=== PATIENT | male | born 1985 | race Caucasian/White ===

== ENCOUNTER 2020-08-17 22:02 | Emergency (ER) | payer MEDICAID ==
[2020-08-17 22:34] VITALS: BP 142/91; PULSE 73; RESP 18; TEMP 97.9
[2020-08-17] MEDS ORDERED: BACITRACIN OINT 1 EACH PACKET TOPICAL ONE (23:06)
[2020-08-17] MEDS ORDERED: CEPHALEXIN 500MG STARTER PACK 4 CAP BTL PO STA (23:23)
--- NOTE | 2020-08-17 23:30 | ED ---
Skin/Abscess/FB HPI - General Chief complaint: Skin/Abscess/Foreign Body Stated complaint: Hand lac Time Seen by Provider: 08/17/20 22:45 Source: patient Mode of arrival: ambulatory Limitations: no limitations - History of Present Illness Initial comments: 35 year-old male patient presents to the emergency department for evaluation of puncture wound to the left hand. Patient was using a drill on his chicken coop when he slipped and the drill bit entered the palm of his left hand. Injury occurred around 9pm. Reports oozing of blood and some discomfort. Reports some tingling to the volar forearm. Denies difficulty with movement of the hand or wrist. States his tetanus is up to date within the last 5 years. Denies any other injuries or concerns. - Related Data Previous Rx's Medication Instructions Recorded Cephalexin [Keflex] 500 mg PO BID #10 cap 08/17/20 Allergies Allergy/AdvReac Type Severity Reaction Status Date / Time No Known Allergies Allergy Verified 08/17/20 22:34 Review of Systems ROS Statement: Those systems with pertinent positive or pertinent negative responses have been documented in the HPI. ROS Other: All systems not noted in ROS Statement are negative. Past Medical History Past Medical History: No Reported History History of Any Multi-Drug Resistant Organisms: None Reported Additional Past Surgical History / Comment(s): left knee orthoscopy Past Psychological History: No Psychological Hx Reported Smoking Status: Never smoker Past Alcohol Use History: Occasional Past Drug Use History: None Reported General Exam Limitations: no limitations General appearance: alert, in no apparent distress Eye exam: Present: normal appearance, PERRL, EOMI. Absent: scleral icterus, conjunctival injection, periorbital swelling ENT exam: Present: normal exam, normal oropharynx, mucous membranes moist Respiratory exam: Present: normal lung sounds bilaterally. Absent: respiratory distress, wheezes, rales, rhonchi, stridor Cardiovascular Exam: Present: regular rate, normal rhythm, normal heart sounds. Absent: systolic murmur, diastolic murmur, rubs, gallop, clicks Extremities exam: Present: full ROM, normal capillary refill, other (puncture wound noted to the center of the left hand. Mild oozing of bright red blood. Radial, ulnar, and medial nerve is intact. Skin is otherwise pink, warm, and dry. Radial pulse 2+. ). Absent: normal inspection, tenderness, pedal edema, joint swelling, calf tenderness Neurological exam: Present: alert, oriented X3, CN II-XII intact Psychiatric exam: Present: normal affect, normal mood Skin exam: Present: warm, dry, intact, normal color. Absent: rash Course Vital Signs 08/17/20 22:31 Temperature 97.9 F Pulse Rate 73 Respiratory 18 Rate Blood Pressure 142/91 O2 Sat by Pulse 99 Oximetry Medical Decision Making - Medical Decision Making 35-year-old male patient presented to the emergency department today for evaluation of puncture wound to the left hand. Sustained injury with the drill around 9 PM. Physical examination did reveal to the center of the palm mild oozing of blood. X-ray was obtained and showed no evidence or fracture. Started on Keflex for prevention of infection. Educated regarding signs or symptoms of infection and wound care. Instructed to follow-up with the primary care physician or computer support specialist instructor if he has any further problems. Return parameters were discussed in detail. He verbalizes understanding and agrees w ith this plan. My attending is Dr. Lim. - Radiology Data Radiology results: report reviewed, image reviewed 3 views of the left hand are obtained. Report is reviewed in its entirety. Impression by Dr. Duncan shows negative exam. No fracture. Disposition Clinical Impression: Puncture wound of left hand Disposition: HOME SELF-CARE Condition: Good Instructions (If sedation given, give patient instructions): Puncture Wound (ED) Additional Instructions: Keep wound clean and dry. Cleanse twice daily with warm water and antibacterial soap. Take antibiotics one tablet twice daily until they are gone. Follow-up with the primary care physician for recheck in 1-2 days. Return to the emergency department for any new, worsening, or concerning symptoms. Prescriptions: Cephalexin [Keflex] 500 mg PO BID #10 cap Is patient prescribed a controlled substance at d/c from ED?: No Referrals: Alvaro Scott MD [STAFF PHYSICIAN] - 1-2 days Time of Disposition: 23:39
--- NOTE | 2020-08-17 23:35 | XR ---
EXAMINATION TYPE: XR hand complete LT DATE OF EXAM: 08/17/2020 COMPARISON: NONE HISTORY: Injury. Pain. TECHNIQUE: 3 views FINDINGS: I see no fracture nor dislocation. Joint spaces are normal. There is no evidence of radiopa que foreign body. IMPRESSION: Negative exam. No fracture.
== END 2020-08-17 23:50 | disposition home or self-care (01) ==
LOC: EC 22:02
DX: S61.432A Puncture wound without foreign body of left hand, initial encounter (principal); W31.1XXA Contact with metalworking machines, initial encounter
CPT/HCPCS: 99282